=== PATIENT | female | born 1995 | race Two or more races ===

== ENCOUNTER 2025-03-01 17:58 | Emergency (ER) | payer SELFPAY ==
[2025-03-01 17:59] VITALS: BMI 40.3
[2025-03-01 18:52] VITALS: BP 137/84; PULSE 74; RESP 18; TEMP 37.2; O2SAT 97
--- NOTE | 2025-03-01 19:40 | EDNOTE_ITS ---
ED Skin Abcess FB-RME/HPI General Chief complaint: Extremity Problem,Nontraumatic Stated complaint: R INGROWN TOENAIL X1 MONTHS Time Seen by Provider: 03/01/25 18:55 Arrival date/time: 03/01/25 17:58 30F with history of endometriosis presents to ED with 1 month of R big toe ingrown toenail. Patient hasn't been on ABX because she had a positive home test. She wants the blood test to confirm. Limitations: no limitations Related Data Home Medications ?Medication ?Instructions ?Recorded ?Confirmed ferrous sulfate 325 mg (65 mg 325 mg PO BID 03/17/20 0 03/17/20 iron) tablet vitamins-iron fumarate 27 1 tab PO QDAY 03/1703/17/20 mg iron-folic acid 0.8 mg tablet ( Vitamin) Previous Rx's ?Medication ?Instructions ?Recorded cephalexin 750 mg capsule 750 mg PO TID 7 days #21 cap s 03/01/25 Allergies Allergy/AdvReac Type Severity Reaction Status Date / Time No Known Allergies Allergy Verified 03/01/25 18:01 Review of Systems Review of Systems Systems Reviewed: All systems reviewed, normal except as documented Constitutional Constitutional: Reports system reviewed and no additional complaints, except as documented, Denies fever(s) and Denies headache(s) ENT Ears, Nose, Mouth, and Throat: Denies disequilibrium and Denies headache(s) Cardiovascular Cardiovascular: Reports system reviewed and no additional complaints, except as documented, Denies chest pain and Denies dyspnea Respiratory Respiratory: Reports system reviewed and no additional complaints, except as documented, Denies cough and Denies dyspnea Gastrointestinal Gastrointestinal: Reports system reviewed and no additional complaints, except as documented, Denies abdominal pain, Denies nausea and Denies vomiting Integumentary/Breasts Skin/Breast: Reports as per HPI and Reports skin pain Neurologic Neurologic: Reports system reviewed and no additional complaints, except as documented, Denies confusion, Denies disequilibrium and Denies headache(s) Psychiatric Psychiatric: Denies confusion Past Medical History Past Medical History NEUROLOGIC: Negative Neurological Disorders or Seizures CARDIAC: Negative Cardiac Disorders or Congestive Heart Failure RESPIRATORY: Negative Chronic Obstructive Pulmonary Disease (COPD) GASTROINTESTINAL: Negative Gastrointestinal Disorders or Hepatitis GENITOURINARY: Negative Genitourinary Disorders or Renal Disease REPRODUCTIVE: Positive Previous Pregnancies; Negative Endometriosis, Pelvic Inflammatory Disease or Uterine Prolapse MUSCULOSKELETAL: Negative Musculoskeletal Disorders ENDOCRINE: Negative Endocrine Disorders, Diabetes Mellitus Type 1 or Diabetes Mellitus Type 2 HEMATOLOGIC: Positive Anemia; Negative Blood Disorders, Leukemia, Hemophilia, Thalassemia, Sickle Cell Disease or Clotting Problems OTHER HISTORY: Negative Hospitalization, Autoimmune Disease, Down Syndrome, Developmental Delay, Shingles, Falls, Blood Transfusions, Blood Transfusion Reaction, Anesthesia Reactions, Organ Transplant, Chemotherapy, Radiation Therapy, Hyperbaric Therapy, Human Immunodeficiency Virus (HIV), Chicken Pox, Measles, Mumps, Rubella (Amharic Measles), Pertussis, Clostridium Difficile or Cancer Family History FAMILY HISTORY: Positive Family Cancer (FATHER HAD PROSTATE CANCER); Negative Family Psychiatric Problems, Family Respiratory Disorders, Family Cardiac Disorders, Family Gastrointestinal Problems, Family Surgery or Family Anesthesia Reaction Surgical History SURGICAL: Negative Organ Transplant Social History SMOKING STATUS: Never smoker SECOND HAND EXPOSURE: No ED Exam General Limitations: Present no limitations General appearance: Present alert and in no apparent distress Head Head exam: Present atraumatic Eye Eye exam: Present normal appearance, PERRL and EOMI ENT ENT exam: Present normal exam, normal oropharynx and mucous membranes moist Neck Neck exam: Present normal inspection, full ROM and trachea midline Chest Chest inspection: Present normal inspection and symmetric chest wall rise Respiratory Respiratory exam: Present normal lung sounds bilaterally Cardiovascular Cardiovascular exam: Present regular rate, normal rhythm and normal heart sounds Abdominal Exam Abdominal exam: Present soft and normal bowel sounds Extremities Exam Extremities exam: Present full ROM Expanded Lower Extremity Exam Foot/toe exam: Present full ROM (R big toenail) and tenderness Back Exam Back exam: Present normal inspection and full ROM Neurological Exam Neurological exam: Present alert, oriented X3 and CN II-XII intact Psychiatric Psychiatric exam: Present normal affect and normal mood Skin Skin exam: Present warm, dry, intact and normal color Course Quality Measures none Orders Category Date Time Status Beta HCG,Quantitative Stat Lab 03/01/25 19:15 Completed Vital Signs Vital signs: Vital Signs Temperature 98.9 F 03/01/25 18:52 Pulse Rate 74 03/01/25 18:52 Respiratory Rate 18 03/01/25 18:52 Blood Pressure 137/84 H 03/01/25 18:52 Pulse Oximetry (%) 97 03/01/25 18:52 Oxygen Delivery Method Room Air 03/01/25 18:52 O2 at 97% on RA and WNLs Skin / Abscess / Foreign Body MDM Narrative MDM Narrative:: 30F with history of endometriosis presents to ED with 1 month of R big toe ingrown toenail. Patient hasn't been on ABX because she had a positive home test. She wants the blood test to confirm. Physical exam reveals R big toe ingrown toenail. Patient is afebrile, calm, and alert. Beta HCG around 80k. safe-ABX given for infected ingrown toenail. Patient data External records reviewed:: [facility] previous records Clinical information provided by:: patient Social determinants that could affect healthcare access:: none Patient has the following chronic illnesses:: endometriosis How is presenting disease/condition affected by chronic disease/condition?: uneffected by Evaluation data The following diagnostics were reviewed and interpreted by me:: lab results Lab and/or radiology exams considered but not ordered:: ordered Interpretation Summary: above Medications / Prescriptions Medications or Prescriptions considered but not ordered:: not ordered Medication administrations:: n/a Consultations Consultation(s) initiated? (list below): No Diagnosis Skin/Abscess Differential Diagnosis: abscess of skin or subcutaneous tissue, viral exanthem, dermatophytosis, urticaria, herpes zoster, allergic reaction to drug, cellulitis, eczema, insect bites, impetigo, contact dermatitis and other (, ingrown toenail) Most likely diagnosis given after review of the tests above:: ingrown toenail and currently Admission Indicated Admission indicated?: not indicated Admission Request Was there a request for admission?: No Disposition Plan Disposition Plan: Discharge Discharge Attestation Discharge Attestation: The patient and all family members were given an opportunity to ask questions and understood the discharge instructions. Discharge instructions specifically effects, indications for sooner follow up or return to the emergency department, and the expected course of current diagnosis. Patient condition: Stable Discharge Plan Plan Patient Disposition: HOME (Self Care) Disposition Comment: Stable Prescriptions/Referrals Prescriptions/Med Rec: New cephalexin 750 mg capsule 750 mg PO TID 7 Days Qty: 21 0RF No Action ferrous sulfate 325 mg (65 mg iron) Tablet 325 mg PO BID Vitamin 27 mg iron- 0.8 mg Tablet 1 tab PO QDAY Referrals: Ezio Hermosillo MD [Primary Care Provider] - In 1 week Problem List Clinical Impression: Currently , Ingrowing toenail Patient/Caregiver Discharge Instructions Education Materials: ED Toenail Ingrown Infec Abx Onl Additional Instructions: Please follow-up with PCP within 24-48 hours and return immediately if symptoms worsen. See electric welder helper for definite ingrown toenail fix. Print Language: [place] Stand Alone Forms: Patient Portal Info Letter PA/CLINICAL SOCIOLOGIST Supervising Physician JIM/CLINICAL SOCIOLOGIST Supervising Physician: Dr. Thompson
[2025-03-01 20:39] LABS: Beta HCG,Quantitative 86020 mIU/mL (<5.0)
== END 2025-03-01 21:13 | disposition home or self-care (01) ==
PROVIDERS: Physician Assistant; Emergency Provider Emergency Medicine; PCP Family Medicine
DX: O99.719 Diseases of the skin and subcutaneous tissue complicating pregnancy, unspecified trimester (principal); L60.0 Ingrowing nail; Z3A.00 Weeks of gestation of pregnancy not specified
CPT/HCPCS: 36415; 84702; 99283

== ENCOUNTER 2025-08-09 18:33 | Observation (INO) | payer OTHER, SELFPAY ==
[2025-08-09] VITALS (24 sets, daily range): BP systolic 133; BP diastolic 75; PULSE 76–89; RESP 18–97; TEMP 36.8; O2SAT 92–99; BMI 43.4
--- NOTE | 2025-08-09 18:49 | XR_ITS ---
Examination: Complete OB ultrasound greater than 14 weeks Date and time of exam: August 09, 2025, 1927 hrs. Indications: Vaginal bleeding beginning this morning Findings: Viable intrauterine single fetus with single amniotic sac presentation breech Cardiac motion 140 BPM Placenta anterior grade 3 Umbilical cord insertion seen Amniotic fluid index 12.6 cm spine maternal right Cervix 3.6 cm Ovaries obscured by bowel gas No placental abruption. Composite estimated gestational age based on BPD, head circumference, abdominal circumference, femur length is 34 weeks 6 days Estimated weight 2499 g. Survey of intracranial anatomy, spinal anatomy, abdominal anatomy, four-chamber heart performed with no abnormalities identified. Impression: Viable intrauterine gestation breech presentation.
== END 2025-08-09 20:53 | disposition home or self-care (01) ==
PROVIDERS: Admitting Provider Specialist; Visit Provider Specialist
DX: O26.853 Spotting complicating pregnancy, third trimester (principal); Z3A.34 34 weeks gestation of pregnancy
CPT/HCPCS: 59025; 59899; 76805

== ENCOUNTER 2025-09-19 10:17 | Inpatient (IN) | payer OTHER, SELFPAY ==
--- NOTE | 2025-09-13 15:24 | ESHP_ITS ---
RE: BOZENA MEDINA : 1995 DATE OF ADMISSION: 09/19/2025 DATE OF SURGERY: 09/19/2025. HISTORY OF PRESENT ILLNESS: This is a 30-year-old 3, para 2-0-0-2 with due date of 09/25 with intrauterine at 39 weeks and 1 day on 09/19, who presents for repeat delivery. She is also multiparous and desires voluntary sterilization. She denies any leaking or bleeding. She reports normal movement. She has occasional contractions. ALLERGIES: NO KNOWN DRUG ALLERGIES. MEDICATIONS: 1. multivitamin 1 p.o. daily. 2. Ferrous sulfate 325 mg 1 p.o. daily. 3. Aspirin 81 mg 1 p.o. daily. PAST MEDICAL HISTORY: Obesity, eczema, rubella non-immune, borderline chronic hypertension, group B strep, urinary tract infection in the first trimester, iron deficiency anemia. FAMILY HISTORY: Mother has hypertension. OBSTETRIC HISTORY: In 2016 a 41 weeks delivery, 9 pound male, no complications. In 2019 a 40 weeks delivery, 7 pound 2 ounce female, no complications. PAST SURGICAL HISTORY: Denies. REVIEW OF SYSTEMS: She denies any chest pain, palpitations, cough, fever, flank pain, shortness of breath, or lower extremity pain. PHYSICAL EXAMINATION: VITAL SIGNS: Blood pressure 135/72, heart rate 88, respiration 18, temperature 98.6, weight 272 pounds. HEENT: Oropharynx and sclerae are clear. LUNGS: Clear to auscultation bilaterally. HEART: Regular rate and rhythm. ABDOMEN: Gravid, term size, old Pfannenstiel scar noted. EXTREMITIES: Non-tender. SKIN: No gross rashes or lesions. NEUROLOGIC: No focal deficit. ASSESSMENT AND PLAN: Intrauterine at 39 weeks and 1 day on 09/19, previous delivery, elected to repeat delivery, multiparity, desired voluntary sterilization. PLAN: Repeat delivery and bilateral tubal ligation. Informed consent was obtained. Patient was made aware of the risks, complications, alternatives, and benefits of the proposed procedure, and she agrees. She is aware of the failure rate and the increased risk of tubal ectopic gestation if occurs. She is aware of the reversal methods of control and she declines those options. DT: 13:58:26 TT: 15:22:00 Ref: [id number] - TID: [id number] MTDD
[2025-09-19] VITALS (19 sets, daily range): BP systolic 0–157; BP diastolic 0–92; PULSE 60–103; RESP 12–22; TEMP 36.5–36.8; O2SAT 96–99; BMI 43.9
[2025-09-19] MEDS: RINGERS LACTATED 1000 ML 1,000 ML 100 ML IV ×2 (11:08→11:41)
[2025-09-19 11:18] LABS: Basophils # (Auto) 0.0 Thou/mm3 (0.0-0.2); Basophils % (Auto) 1 % (0-2.5); Eosinophils # (Auto) 0.1 Thou/mm3 (0.0-0.5); Eosinophils % (Auto) 1 % (0-10); Hematocrit 30.1 % (36.0-46.0); Hemoglobin 9.8 g/dL (12.0-16.0); Immature Granulocytes Auto 0.02 Thou/mm3 (0.00-0.00); Lymphocytes # (Auto) 1.6 Thou/mm3 (1.0-4.8); Lymphocytes % (Auto) 23 % (10-50); Mean Corpuscular HGB Conc 32.6 g/dl (31.0-37.0); Mean Corpuscular Hemoglobin 27.9 pg (25.0-35.0); Mean Corpuscular Volume 86 fL (80-100); Monocytes # (Auto) 0.4 Thou/mm3 (0.0-0.8); Monocytes % (Auto) 6 % (0-12); Neutrophils # (Auto) 4.5 Thou/mm3 (1.8-7.7); Neutrophils % (Auto) 68 % (37-80); Nucleated Red Blood Cell # 0.00 Thou/mm3 (0.00-0.00); Nucleated Red Blood Cell % 0 /100 WBC (0); Platelet Count 180 Thou/mm3 (140-440); RDW Standard Deviation 42.9 fL (36.4-46.3); Red Blood Count 3.51 Miln/mm3 (4.00-5.20); White Blood Count 6.7 Thou/mm3 (3.6-11.0)
[2025-09-19 12:02] LABS: Syphilis Nonreactive (Nonreactive)
[2025-09-19] MEDS: ceFAZolin/D5W 2 GM IV 2 GM/100 ML BAG IV (12:20)
[2025-09-19] MEDS: METOCLOPRAMIDE INJ 5 MG/ML VIAL 2 ML 10 MG IVP (12:21)
[2025-09-19] MEDS: FAMOTIDINE INJ 10 MG/ML VIAL 2 ML 20 MG IV (12:21)
--- NOTE | 2025-09-19 12:39 | PD.GYNPROC ---
Operative Note - SYSTEMS SOFTWARE DEVELOPER Procedure Date of procedure: 09/19/25 Procedure Performed: Repeat low-transverse section via Pfannenstiel skin incision Bilateral salpingectomy Lysis of adhesions Indication: Intrauterine at 39 weeks and 1 day Previous delivery Elects repeat delivery Multiparity desires voluntary sterilization Pre-Op diagnosis: Intrauterine at 39 weeks and 1 day Previous delivery Elects repeat delivery Multiparity desires voluntary sterilization Post-Op diagnosis: Intrauterine at 39 weeks and 1 day Previous delivery Elects repeat delivery Multiparity desires voluntary sterilization Anesthesia type: Spinal Procedure description: After proper informed consent was obtained and the patient was made aware of the risks, complications, alternatives and benefits of the proposed procedure she was taken to the operating room where she underwent induction of spinal anesthesia. She was prepped and draped in the usual sterile fashion. A timeout was performed.? A Pfannenstiel skin incision was made with the scalpel and carried through to the underlying layer of fascia with the Bovie. The fascia was nicked in the midline incision and the incision was extended bilaterally with the Bovie. The inferior aspect of the fascial incision was grasped with Kalpana clamps elevated and the underlying rectus muscle dissected off with the Bovie. The superior aspect the fascial incision was grasped with Kalpana clamps elevated and the underlying rectus muscle dissected off with the Bovie. The rectus muscles were in the midline. The peritoneum was grasped between 2 Nathan clamps and entered sharply with the Metzenbaum scissors. The peritoneum was extended superiorly and inferiorly with good visualization of the bladder. The vesicouterine peritoneum was incised transversely and the bladder flap created digitally. A Patel blade was inserted. A low transverse incision was made in the uterus with a scapel and the incision was extended digitally. The infant's head delivered and the mouth and nose were suctioned with the bulb suction. The shoulder and body delivered atraumatically. The cord was clamped after 30 second delayed cord clamping and the cord was cut.? The infant was handed off to the waiting Pediatric staff, cord blood was collected for lab testing. The placenta was removed complete and intact. The uterus was exteriorized and cleared of all clots and debris. The uterine incision was closed with #1-0 chromic catgut suture in a running interlocking fashion. A second layer of the same suture was used to imbricate the first layer and obtain excellent hemostasis. The vesicouterine peritoneum was closed with 2-0 chromic catgut suture in a running fashion. Attention was turned to the left fallopian tube which was grasped at the fimbriated end with a Apoorva clamp and using the Enseal X-1 large jaw a left salpingectomy was performed. Hemostasis achieved. Attention was turned to the right fallopian tube which was grasped at the fimbriated end with a [place] clamp and using the Enseal X-1 large jaw a left salpingectomy was performed. Hemostasis achieved. The firm uterus was returned to the abdomen. The gutters were cleared of all clots and debris. The adnexae were revisualized along with the lower uterine segment and all was hemostatic. The peritoneum was closed with 0 chromic catgut suture in running fashion. The rectus muscle was closed with 0 chromic catgut suture. The fascia was closed with 0 Vicryl beginning at each angle and ending in the center in a running fashion. The subcutaneous tissue was irrigated with warmed normal saline solution and found to be hemostatic. The subcutaneous tissue was closed with 2-0 chromic catgut suture in a running fashion. The skin was closed with 4-0 Monocryl. A Dermabond Prineo dressing was applied and a sterile pressure dressing was applied.? She tolerated the procedure well. Counts were correct. I discussed with the patient the nature of her condition, intraoperative findings and expectation for recovery all questions answered. Specimen: left tube and right tube Estimated blood loss (ml): 600 Findings: Live infant Apgars see RN notes Weight see RN notes Amniotic fluid clear Adenomyosis of the uterus Endometriosis Complications: none Surgical staff Dr Miranda Stanton CRNA Operation Date: 09/19/25 12:45 <No data on this case meets the specified criteria> Diagnosis Problem List Completed Was Problem List Reviewed/Reconciled?: Yes
--- NOTE | 2025-09-19 14:15 | PC.NURSE ---
#1 bag of normal saline with 20 units of oxytocin started by Joao Stanton CRNA in OB OR prior to going to room, more than 900ml in IV bag when arriving to RM [id number].
[2025-09-19 17:16] LABS: Basophils # (Auto) 0.0 Thou/mm3 (0.0-0.2); Basophils % (Auto) 0 % (0-2.5); Eosinophils # (Auto) 0.0 Thou/mm3 (0.0-0.5); Eosinophils % (Auto) 0 % (0-10); Hematocrit 29.4 % (36.0-46.0); Hemoglobin 9.6 g/dL (12.0-16.0); Immature Granulocytes Auto 0.03 Thou/mm3 (0.00-0.00); Lymphocytes # (Auto) 1.2 Thou/mm3 (1.0-4.8); Lymphocytes % (Auto) 12 % (10-50); Mean Corpuscular HGB Conc 32.7 g/dl (31.0-37.0); Mean Corpuscular Hemoglobin 28.7 pg (25.0-35.0); Mean Corpuscular Volume 88 fL (80-100); Monocytes # (Auto) 0.5 Thou/mm3 (0.0-0.8); Monocytes % (Auto) 5 % (0-12); Neutrophils # (Auto) 8.4 Thou/mm3 (1.8-7.7); Neutrophils % (Auto) 82 % (37-80); Nucleated Red Blood Cell # 0.00 Thou/mm3 (0.00-0.00); Nucleated Red Blood Cell % 0 /100 WBC (0); Platelet Count 183 Thou/mm3 (140-440); RDW Standard Deviation 44.1 fL (36.4-46.3); Red Blood Count 3.35 Miln/mm3 (4.00-5.20); White Blood Count 10.2 Thou/mm3 (3.6-11.0)
--- NOTE | 2025-09-19 18:10 | PC.NURSE ---
RN OFFERED PATIENT A BREAST PUMP ; PATIENT WANTS TO FORMULA FEED ONLY.
[2025-09-19] MEDS: OXYTOCIN in NS 20 units 20 UNIT/1,000 ML BAG 125 UNIT IV (21:18)
[2025-09-20 00:09] VITALS: BP 116/72; PULSE 63; RESP 18; TEMP 36.7; O2SAT 98
[2025-09-20 04:24] VITALS: BP 118/79; PULSE 75; RESP 16; TEMP 36.7; O2SAT 96
[2025-09-20 08:00] VITALS: BP 114/80; PULSE 82; RESP 18; TEMP 36.7; O2SAT 96
--- NOTE | 2025-09-20 08:26 | ESPR_ITS ---
RE: BOZENA MEDINA : 1995 DATE OF SERVICE: 09/20/2025 SUBJECTIVE: Postop day #1. Patient denies any problem or complaints. She is voiding. She is ambulating. She is tolerating diet. She is passing flatus. She denies any excessive vaginal bleeding. She denies any dizziness or lightheadedness. She denies any chest pain, palpitation, shortness of breath, or lower extremity pain. OBJECTIVE: Vital Signs: Blood pressure 118/79, heart rate 75, respiration 16, temperature is 98.5, pulse ox is 96% on room air. Lungs: Clear to auscultation bilaterally. Heart: Regular rate and rhythm. Abdomen: Nondistended. Dressing dry and intact. Fundus is firm. Extremities: Nontender. Hemoglobin predelivery is 9.8. Postdelivery is 9.6. ASSESSMENT: Postop day #1 status post delivery and bilateral salpingectomy with lysis of adhesions. PLAN: Remove dressing. Discontinue IV. Encourage ambulation, support, possible discharge home tomorrow. DT: 07:05:15 TT: 08:25:00 Ref: [id number] - TID: [id number]
[2025-09-20] MEDS: ENOXAPARIN SOD INJ 40 MG/0.4 ML SYRINGE SC (09:12)
[2025-09-20] MEDS: IBUPROFEN TAB 400 MG TABLET 800 MG PO (09:13)
[2025-09-20] MEDS: DOCUSATE SOD 100 MG CAPSULE PO (09:13)
[2025-09-20 12:00] VITALS: BP 120/77; PULSE 82; RESP 17; TEMP 36.7; O2SAT 96
[2025-09-20 16:00] VITALS: BP 116/80; PULSE 73; RESP 18; TEMP 36.8; O2SAT 96
[2025-09-20] MEDS: HYDROcodone/APAP 5/325 TABLET 2 TAB PO (19:51)
[2025-09-20 20:00] VITALS: BP 124/81; PULSE 85; RESP 16; TEMP 37.1; O2SAT 97
[2025-09-21] MEDS: HYDROcodone/APAP 5/325 TABLET 2 TAB PO (03:18)
[2025-09-21 03:22] VITALS: BP 137/89; PULSE 77; RESP 18; TEMP 36.4; O2SAT 97
[2025-09-21 08:00] VITALS: BP 138/90; PULSE 84; RESP 18; TEMP 36.3
--- NOTE | 2025-09-21 08:05 | ESPR_ITS ---
RE: BOZENA MEDINA : 1995 DATE OF SERVICE: 09/21/2025 SUBJECTIVE: Postop day #2. Patient denies any problem or complaints. She is voiding. She is ambulating. She is tolerating a regular diet. She is passing flatus. She denies any chest pain, palpitations, shortness of breath or lower extremity pain. She denies any dizziness or lightheadedness. She denies any excessive vaginal bleeding. OBJECTIVE: VITAL SIGNS: Blood pressure is 137/89, heart rate 77, respiration 18, temperature is 97.5, pulse ox is 97% on room air. LUNGS: Clear to auscultation bilaterally. HEART: Regular rate and rhythm. ABDOMEN: Incision clear and intact, fundus is firm. EXTREMITIES: Nontender. ASSESSMENT AND PLAN: Postop day #2 status post delivery and bilateral salpingectomy. Plan: Discharge home. Discharge instructions given. Follow up in the office in 1 week. DT: 07:26:46 TT: 08:04:00 Ref: [id number] - TID: [id number]
[2025-09-21] MEDS: DOCUSATE SOD 100 MG CAPSULE PO (08:06)
[2025-09-21] MEDS: ACETAMINOPHEN 325 MG TABLET PO (08:06)
[2025-09-21] MEDS: ENOXAPARIN SOD INJ 40 MG/0.4 ML SYRINGE SC (08:07)
--- NOTE | 2025-09-21 08:20 | PC.NURSE ---
Removed IV to stanley hand. Tolerated well.
--- NOTE | 2025-09-21 09:58 | PD.LDDELS ---
Data (Doan) Data Hx Section: Yes (X2) : 3 Term: 2 : 0 Livin Abortions: Spontaneous & Theraputic: 0 Delivery Data (Doan) Labor Data Induction/Augmentation Agent: None ROM date: 09/19/25 ROM time: 13:06 Amniotic membrane rupture type: Artificial Amniotic fluid description: Clear Delivery Data [place] delivery date: 09/19/25 [place] delivery time: 13:07 Placenta delivery date: 09/19/25 Placenta delivery time: 13:07 Delivered by: George Jean Delivery nurse: Shonda Conn RN [place] nurse: Grace NULL RN Utility Clerk at delivery: Yes (Dr. Ramos) Support person(s) at delivery: fob Delivery Method Delivery method: Low Transverse Presentation: Vertex Anesthesia Type Anesthesia Type: Spinal Anesthesia type: Spinal Placenta Placenta delivery description: Manual Removal Cord blood sent to lab: Yes cord blood collection: Cord Blood Type Episiotomy Episiotomy description: None Umbilical Cord cord description: 3 Vessels Data (Doan) [place] Data order: 1 's gender: Male Identification band number: [id number] weight (gms): 8 lb 10.979 oz Weight (pounds): 8 lbs and 11.0 ozs 1 minute: 8 5 minutes: 9
--- NOTE | 2025-09-21 09:59 | ESDS_ITS ---
DS: Providers Provider Date of admission: 09/19/25 10:17 Primary care physician: Ezio Hermosillo MD Admitting Provider: George Jean MD Attending Provider on Admission: George Jean MD Consults: 09/19/25 13:32 Referral Routine Comment: Attending Provider on DC: George Jean MD Discharging Provider: George Jean MD DS: Diagnosis Problem List Completed Was Problem List Reviewed/Reconciled?: Yes Summary/Hosp Course Peripartum Data Delivery Method: Low Transverse Episiotomy Description: None Procedures: Procedures Operation Date: 09/19/25 12:45 Actual Procedure Side Surgeon p w/tubal OB George Jean MD Time Spent with Patient Time attestation: Total time spent providing and/or coordinating discharge services: Exam Vital Signs Temp Pulse Resp BP Pulse Ox O2 Del Method 97.4 F 84 18 138/90 H 97 Room Air 09/21/25 08:00 09/21/25 08:00 09/21/25 08:00 09/21/25 08:00 09/21/25 03:22 09/21/25 03:22 Discharge Plan Plan Patient Disposition: HOME (Self Care) Patient condition on transfer: Stable Prescriptions/Referrals Prescriptions/Med Rec: New ibuprofen 600 mg tablet 600 mg PO Q6H PRN (Reason: pain) Qty: 30 0RF Continued ferrous sulfate 325 mg (65 mg iron) Tablet 325 mg PO BID Vitamin 27 mg iron- 0.8 mg Tablet 1 tab PO QDAY Referrals: Ezio Hermosillo MD [Primary Care Provider, Family Practice] Patient/Caregiver Discharge Instructions Discharge Activity: activity as tolerated Other Discharge Activity Instructions:: Follow up office 1 week. Education Materials: C Section Dc Print Language: [place]azight Stand Alone Forms: Nel Award Info., Patient Portal Info Letter Discharge Order Discharge Orders: Discharge (Routine); Ordered 09/21/25 Ordered By: George Jean Planned Discharge Date 09/21/25
== END 2025-09-21 11:35 | disposition home or self-care (01) | DRG 785 ==
LOC: S4SX 12:36 → S4NX 12:57
PROVIDERS: Admitting Provider Specialist; PCP Family Medicine; Visit Provider Specialist
PROC: 0UL70ZZ Occlusion of Bilateral Fallopian Tubes, Open Approach (ICD-10-PCS; CPT 59514; principal; 2025-09-19 12:30)
DX: O34.211 Maternal care for low transverse scar from previous cesarean delivery (principal); Z30.2 Encounter for sterilization; Z37.0 Single live birth; Z3A.39 39 weeks gestation of pregnancy; N80.03 Adenomyosis of the uterus
CPT/HCPCS: 36415; 85025; 86780; 86850; 86900; 86901; 86923; A4217; A4649; J0689; J1650; J2274; J2405; J2590; J2765; J3010; J3490; J7120; A9270; J2270